=== PATIENT | female | born 1985 | race Caucasian/White ===

== ENCOUNTER 2017-07-12 12:16 | Observation (INO) ==
[2017-07-12] MEDS ORDERED: Ketorolac 15 MG/ML VIAL IVP ONE (12:45)
[2017-07-12] MEDS ORDERED: Ondansetron 4 MG/2 ML VIAL IVP ONE (12:45)
[2017-07-12 12:47] LABS: Bilirubin,Urine Negative (Negative); Blood,Urine Small (Negative); Clarity,Urine Cloudy (Clear); Color,Urine Dark Yellow (Yellow); Glucose,Urine (UA) Normal (Normal); Ketones,Urine Trace mg/dL (Negative); Leukocyte Esterase,Urine Moderate (Negative); Nitrite,Urine Positive (Negative); PH,Urine 6.5 pH Units (5.0-8.0); Protein,Urine 30 mg/dL (Neg-Trace); Specific Gravity,Urine 1.023 (1.010-1.025)
[2017-07-12 12:49] LABS: Bacteria,Urine Many per hpf (None-Few); RBC,Urine 0-3 per hpf (0-3); Squamous Epithelial Cell,Urine Many per lpf (None-Few)
--- NOTE | 2017-07-12 12:50 | Emergency Department Note ---
Disposition Clinical Impression: Pyelonephritis Disposition: Admitted As Inpatient Condition: Fair Referrals: NONE,PCP [Primary Care Provider] - Forms: Work/School Release, ED Satisfaction Letter General Adult HPI - General Chief complaint: ED Abdominal Pain Stated complaint: L flank pain Time Seen by Provider: 07/12/17 12:27 Source: patient Limitations: no limitations Nursing Notes Reviewed: Yes Vital Signs Reviewed: Yes - History of Present Illness HPI Narrative: Ms. Fajardo, a 32-year-old female, presents from home by POV for evaluation of left-sided flank pain. Onset 3 days ago. Described as constant ache. Nothing noted to improve or worsen her symptoms. She has associated fever and chills. She has no urinary symptoms. No other abdominal pains. PMH: Cervical cancer status post LEEP with no follow-up. History ovarian cysts. ROS: Positive: Left-sided flank pain, fever, chills Negative: Chest pain, palpitations, back pain, dyspnea, abdominal pain, dysuria , hematuria, melena, hematochezia, consultation, diarrhea, headache Pain Scale: 10 - Related Data Previous Rx's Medication Instructions Recorded DiphenhydraMINE [Benadryl] 25 mg PO Q8HR #9 capsule 02/19/17 Doxycycline 100 mg PO BID #20 capsule 02/19/17 Allergies Allergy/AdvReac Type Severity Reaction Status Date / Time No Known Allergies Allergy Verified 09/25/15 09:12 All systems ED: reviewed and negative except as stated. Past Medical History - Past Medical History Medical history: Reports: cancer, hepatitis Surgical history: Reports: hysterectomy, other Psychiatric history: Reports: depression - Social History Smoking Status: Current every day smoker Smokeless Tobacco Status: No Alcohol use: Reports: rarely Drug use: Reports: none Physical Exam Vital Signs Reviewed General: Patient is alert, oriented, and mild distress-she is sweating on her upper lip is shivering but is otherwise pleasant. HEENT: No facial asymmetry. Head is normocephalic and atraumatic. Oral mucosa moist. Trachea midline. Cardiovascular: Heart tachycardic rate and rhythm without clicks, rubs, gallops , or murmurs. No JVD. PMI nondisplaced. Respiratory: Symmetric chest rise with good respiratory effort. Bilateral breath sounds are clear without wheezing, crackles, or rhonchi. Abdomen: Bowel sounds present normoactive x-4 quadrants. Abdomen is soft, nondistended,. Tenderness along patient's left subcostal margin in the anterior axillary line to the middle back. Neuro: GCS 15. Psych: Patient's affect is appropriate for situation. - General Limitations: no limitations General appearance: alert, in no apparent distress Course Course Narrative: Patient presents from home for evaluation of left flank pain. She has no history of kidney stones. She does have a history of hepatitis B with jaundice. Initial clinical concern for nephrolithiasis versus pyelonephritis versus possible other infectious process. Abdominal exam is nonsurgical. I discussed with her the importance of follow-up for cervical cytology after her LEEP procedure some time ago. Patient is SIRS (+) with intake HR 91 and leukocytosis of 19.1. Lactate not elevated. Will IV rehydrate clinically, monitoring BP and lung sounds. Urinalysis clinically concerning for UTI which is consistent with the patient's presentation. CT abdomen and pelvis concerning for pyelonephritis. There is a consistent with patient's urinalysis and physical exam. Will begin 1 g Rocephin IV. This Reexamined the patient, she is no longer sweating or chilling; no rigors. After her first liter bolus, her systolic is 97. Will repeat bolus. Patient accepted by the hospitalist, Dr. Ware. * Of note, patient will need contact information or primary care physician as well as an [employer]. * Vital Signs Temperature 100.1 F H 07/12/17 12:19 Pulse Rate 91 07/12/17 12:19 Respiratory Rate 18 07/12/17 12:19 Blood Pressure 110/79 07/12/17 12:19 O2 Sat by Pulse Oximetry 100 07/12/17 12:19 Temperature 100.1 F H 07/12/17 12:19 Pulse Rate 61 07/12/17 13:54 Respiratory Rate 18 07/12/17 13:54 Blood Pressure 115/79 07/12/17 13:54 O2 Sat by Pulse Oximetry 97 07/12/17 13:54 Oxygen Delivery Oxygen Delivery Room Air Medical Decision Making - Lab Data Result diagrams: 07/12/17 13:12 07/12/17 13:12 Lab Results 07/12/17 07/12/17 07/12/17 Range/Units 12:35 12:36 13:12 WBC 19.1 H (4.3-11.1) K/mcL RBC 4.24 (3.82-4.97) M/mcL Hgb 13.3 (11.5-15.4) g/dL Hct 38.9 (35.3-44.9) % MCV 91.7 (83.0-100.0) fL MCH 31.4 (28.0-33.3) pg MCHC 34.2 (31.6-35.5) g/dL RDW 12.8 (11.5-14.5) % Plt Count 201 (140-400) K/mcL MPV 10.2 (9.4-12.4) fL Immature Gran % 0.9 (0-4) % Seg Neutrophils % 83.3 % Lymphocytes % 8.0 % Monocytes % 7.5 % Eosinophils % 0.1 % Basophils % 0.2 % Neutrophils # 15.9 H (1.6-8.9) K/mcL Lymphocytes # 1.5 (0.6-4.6) K/mcL Monocytes # 1.4 H (0.0-1.3) K/mcL Eosinophils # 0.0 (0.0-0.6) K/mcL Basophils # 0.0 (0.0-0.2) K/mcL Immature Plt Fraction 4.4 (1.1-6.1) % Sodium (136-145) mEq/L Potassium (3.5-4.5) mEq/L Chloride (98-109) mEq/L Carbon Dioxide (19-29) mEq/L BUN (7-20) mg/dL Creatinine (0.57-1.11) mg/dL Est GFR ( Amer) (> 60) Est GFR (Non-Af Amer) (> 60) BUN/Creatinine Ratio (6-26) Glucose (70-99) mg/dL Calculated Osmolality (280-300) Lactic Acid (0.5-2.2) mmol/L Calcium (8.6-10.8) mg/dL Total Bilirubin (0.2-1.2) mg/dL Direct Bilirubin (0.0-0.5) mg/dL Indirect Bilirubin (0.0-1.2) mg/dL AST (5-34) Units/L ALT (0-55) Units/L Alkaline Phosphatase (38-126) Units/L Serum Total Protein (6.0-8.3) g/dL Albumin (3.5-5.0) g/dL Globulin (2.4-3.5) g/dL Albumin/Globulin Ratio (1.1-2.2) Urine Color Dark Yellow (Yellow) Urine Clarity Cloudy A (Clear) Urine pH 6.5 (5.0-8.0) pH Units Ur Specific [place] 1.023 (1.010-1.025) Urine Protein 30 H (Neg-Trace) mg/dL Urine Glucose (UA) Normal (Normal) mg/dL Urine Ketones Trace H (Negative) mg/dL Urine Blood Small H (Negative) Urine Nitrite Positive A (Negative) Urine Bilirubin Negative (Negative) Urine Urobilinogen 2.0 H (Normal) mg/dL Ur Leukocyte Esterase Moderate H (Negative) Urine Microscopic RBC 0-3 (0-3) per hpf Urine Microscopic WBC 50-100 H (0-3) per hpf Ur Squamous Epith Cells Many H (None-Few) per lpf Amorphous Sediment Few (Few) Urine Bacteria Many H (None-Few) per hpf Urine Yeast Test Not Performed Ur Culture Indicated? YES A (NO) Urine Test Negative (Negative) 07/12/17 07/12/17 Range/Units 13:12 13:12 WBC (4.3-11.1) K/mcL RBC (3.82-4.97) M/mcL Hgb (11.5-15.4) g/dL Hct (35.3-44.9) % MCV (83.0-100.0) fL MCH (28.0-33.3) pg MCHC (31.6-35.5) g/dL RDW (11.5-14.5) % Plt Count (140-400) K/mcL MPV (9.4-12.4) fL Immature Gran % (0-4) % Seg Neutrophils % % Lymphocytes % % Monocytes % % Eosinophils % % Basophils % % Neutrophils # (1.6-8.9) K/mcL Lymphocytes # (0.6-4.6) K/mcL Monocytes # (0.0-1.3) K/mcL Eosinophils # (0.0-0.6) K/mcL Basophils # (0.0-0.2) K/mcL Immature Plt Fraction (1.1-6.1) % Sodium 135 L (136-145) mEq/L Potassium 3.7 (3.5-4.5) mEq/L Chloride 102 (98-109) mEq/L Carbon Dioxide 24 (19-29) mEq/L BUN 8 (7-20) mg/dL Creatinine 0.79 (0.57-1.11) mg/dL Est GFR ( Amer) > 60 (> 60) Est GFR (Non-Af Amer) > 60 (> 60) BUN/Creatinine Ratio 10 (6-26) Glucose 120 H (70-99) mg/dL Calculated Osmolality 280 (280-300) Lactic Acid 1.6 (0.5-2.2) mmol/L Calcium 8.9 (8.6-10.8) mg/dL Total Bilirubin 0.5 (0.2-1.2) mg/dL Direct Bilirubin 0.2 (0.0-0.5) mg/dL Indirect Bilirubin 0.3 (0.0-1.2) mg/dL AST 9 (5-34) Units/L ALT 7 (0-55) Units/L Alkaline Phosphatase 64 (38-126) Units/L Serum Total Protein 7.2 (6.0-8.3) g/dL Albumin 3.3 L (3.5-5.0) g/dL Globulin 3.9 H (2.4-3.5) g/dL Albumin/Globulin Ratio 0.8 L (1.1-2.2) Urine Color (Yellow) Urine Clarity (Clear) Urine pH (5.0-8.0) pH Units Ur Specific [place] (1.010-1.025) Urine Protein (Neg-Trace) mg/dL Urine Glucose (UA) (Normal) mg/dL Urine Ketones (Negative) mg/dL Urine Blood (Negative) Urine Nitrite (Negative) Urine Bilirubin (Negative) Urine Urobilinogen (Normal) mg/dL Ur Leukocyte Esterase (Negative) Urine Microscopic RBC (0-3) per hpf Urine Microscopic WBC (0-3) per hpf Ur Squamous Epith Cells (None-Few) per lpf Amorphous Sediment (Few) Urine Bacteria (None-Few) per hpf Urine Yeast Ur Culture Indicated? (NO) Urine Test (Negative)
[2017-07-12] MEDS ORDERED: 0.9 % Sodium Chloride 1,000 ML IVC ONE ×2 (12:55→14:17)
[2017-07-12 12:59] LABS: WBC,Urine 50-100 per hpf (0-3)
[2017-07-12 13:00] LABS: Amorphous Sediment,Urine Few (Few)
--- NOTE | 2017-07-12 13:16 | Emergency Department Note ---
START Narrative - START START: I examined this patient and my medical decision-making was reviewed with the Resident Physician. I agree with the documented findings, disposition and treatment plan as described except to the extent set forth below. 32-year-old female presents emergency room for left flank pain. We will evaluate for possible kidney stone versus pyelonephritis versus other intra- abdominal pathology. She does have a fever and evidence of a bad urinary tract infection with positive nitrites. Blood cultures. IV fluids she does meet some Sirs criteria.
[2017-07-12 13:21] LABS: Basophils % 0.2 %; Eosinophils % 0.1 %; Hematocrit 38.9 % (35.3-44.9); Hemoglobin 13.3 g/dL (11.5-15.4); Immature Granulocytes % 0.9 % (0-4); Immature Platelets 4.4 % (1.1-6.1); Lymphocytes # 1.5 K/mcL (0.6-4.6); Mean Corpuscular HGB Conc 34.2 g/dL (31.6-35.5); Mean Corpuscular Hemoglobin 31.4 pg (28.0-33.3); Mean Corpuscular Volume 91.7 fL (83.0-100.0); Mean Platelet Volume 10.2 fL (9.4-12.4); Monocytes # 1.4 K/mcL (0.0-1.3); Monocytes % 7.5 %; Neutrophils # 15.9 K/mcL (1.6-8.9); Platelet Count 201 K/mcL (140-400); Red Blood Count 4.24 M/mcL (3.82-4.97); Red Cell Distribution Width 12.8 % (11.5-14.5); Segmented Neutrophils % 83.3 %
[2017-07-12 13:35] LABS: Alanine Aminotransferase 7 Units/L (0-55); Albumin 3.3 g/dL (3.5-5.0); Albumin/Globulin Ratio 0.8 (1.1-2.2); Alkaline Phosphatase 64 Units/L (38-126); Aspartate Amino Transferase 9 Units/L (5-34); BUN/Creatinine Ratio 10 (6-26); Bilirubin,Direct 0.2 mg/dL (0.0-0.5); Bilirubin,Indirect 0.3 mg/dL (0.0-1.2); Bilirubin,Total 0.5 mg/dL (0.2-1.2); Blood Urea Nitrogen 8 mg/dL (7-20); Calcium 8.9 mg/dL (8.6-10.8); Carbon Dioxide 24 mEq/L (19-29); Chloride 102 mEq/L (98-109); Globulin 3.9 g/dL (2.4-3.5); Glucose 120 mg/dL (70-99); Osmolality,Calculated 280 (280-300); Potassium 3.7 mEq/L (3.5-4.5); Sodium 135 mEq/L (136-145); Total Protein 7.2 g/dL (6.0-8.3); eGFR For African Americans > 60 (> 60); eGFR For Non-African Americans > 60 (> 60)
[2017-07-12] MEDS ORDERED: Ondansetron 4 MG/2 ML VIAL IVP PRN (14:50)
[2017-07-12] MEDS ORDERED: Acetaminophen 325 MG TABLET PO PRN (14:50)
[2017-07-12] MEDS ORDERED: Naloxone 0.4 MG/ML INJ IVP PRN (14:50)
--- NOTE | 2017-07-12 15:00 | Internal Med History&Physical ---
Date of Encounter: 07/12/17 Time of Encounter: 14:54 Assessment and Plan (1) Sepsis Current visit: Yes Status: Acute Patient has UTI/pyelonephritis, WBC count of 19, tachycardia with HR in the 90s and fever with temperature of 100.1, meeting sepsis criteria. blood cultures and urine cultures sent Lactate normal at 1.6 Fluid boluses given in ED, will continue with 0.9NS at 100mL/hr Antibiotics initiated with IVPB Rocephin. Qualifiers: Sepsis type: sepsis due to unspecified organism Qualified Code(s): A41.9 - Sepsis, unspecified organism (2) Pyelonephritis Current visit: Yes Status: Acute Patient presented with left flank pain, fever, chills. UA was positive for UTI. CT abd/pelvis showed mild left perinephric and periureteral edema consistent with pyelonephritis. IV fluids 0.9NS at 100mL/hr IV rocephin daily tylenol and toradol PRN for pain and fever. Zofran PRN for nausea. (3) Tobacco abuse Current visit: Yes Status: Acute Patient reports she smokes 1PPD. Encouraged smoking cessation. Nicotine patch and smoking cessation education ordered. (4) DVT prophylaxis Current visit: Yes Status: Acute anti-embolic stockings lovenox SQ daily Internal Medicine - H&P: HPI Chief complaint: fever, chills, flank pain Admitted From: Emergency Dept Plans for Post Hospital Care: Home History of present illness: Ms. Fajardo is a 32 year old female history of hepatitis B, cervical cancer status post LEEP procedure presented to the emergency department for fever, chills and left flank pain for the last 3 days. Patient reports she first noted an ache in her left flank 3 days ago, and it progressively worsened and yesterday developed fever, chills, sweats, and nausea. The pain is worse with certain movements and with palpation. She denies dysuria, vomiting, diarrhea, chest pain, palpitations or shortness of breath. Evaluation in the ED included a CT of her abdomen and pelvis which showed mild left perinephric and periureteral edema. UA was positive for infection. WBC count was elevated to 19.1, she had a fever of 100.1 and she was mildly tachycardic with HR in the low 90s. Lactate was normal at 1.6. Blood cultures and urine cultures were sent, she was given fluid boluses and started on Rocephin. On exam, patient alert and oriented, in no acute distress. Heart had regular rate and rhythm, lungs clear bilaterally to auscultation. Abdomen soft, nontender with positive bowel sounds. Significant left CVA tenderness on palpation. Past Med Surg Social Fam HX - Past Medical History Medical history: cancer (cervical s/p LEEP), hepatitis Psychiatric history: depression - Past Surgical History Surgical History: other (LEEP) - Social History Smoking Status: Current every day smoker Packs per day: 1 Smokeless Tobacco Status: No Alcohol use: rarely Drug use: none (history of IVDU) - Family History Mother Hx Family Cardiac Disorders: Yes Hx Family Cancer: Yes Father Hx Family Cardiac Disorders: Yes Hx Family Cancer: Yes Internal Medicine - H&P: Meds No Known Home Drugs 07/12/17 [History] 3 Allergy/AdvReac Type Severity Reaction Status Date / Time No Known Allergies Allergy Verified 09/25/15 09:12 All Systems PM: A 10-system review of systems was performed and is negative for pertinent findings except as documented above in the HPI. - Constitutional Constitutional: chills, fever(s), night sweats - EENT Eyes: no change in vision, no discharge, no pain, no photophobia Ears: no ear discharge, no ear pain, no tinnitus Nose, mouth and throat: no dysphagia, no nasal discharge, no neck pain, no sore throat - Cardiovascular Cardiovascular ROS IM: no chest pain, no diaphoresis, no dyspnea, no lightheadedness, no palpitations, no syncope - Respiratory Respiratory: no cough, no dyspnea, no wheezing, no excessive phlegm production - Gastrointestinal Gastrointestinal: nausea, no abdominal pain, no diarrhea, no hematemesis, no hematochezia, no melena, no vomiting - Genitourinary Genitourinary: flank pain (left), no change in urinary stream, no dysuria, no hematuria - Musculoskeletal Musculoskeletal ROS IM: back pain (left flank), no numbness, no tingling - Integumentary Integumentary IM: no rash, no unusual bruising - Neurological Neurological ROS: no confusion, no convulsions, no focal weakness, no numbness, no tingling, no tremor(s) - Hematologic/Lymphatic Hematologic/Lymphatic: no easy bruising - Constitutional Vitals: Temp Pulse Resp BP Pulse Ox 100.1 F H 58 16 104/74 98 07/12/17 12:19 07/12/17 14:45 07/12/17 14:45 07/12/17 14:45 07/12/17 14:45 General appearance: Present: A&O X 3, pleasant, no acute distress - Head Head exam: Present: atraumatic, normocephalic - Eye Eye exam: Present: PERRL, conjuntiva pink, sclera anicteric Pupils: Present: PERRL - Neck Neck exam general surgery: Present: supple, trachea midline. Absent: lymphadenopathy - Respiratory Respiratory exam: Present: CTAB. Absent: accessory muscle use, rales, rhonchi, wheezes - Cardiovascular Cardiovascular exam: Present: RRR, +S1, +S2. Absent: diastolic murmur, gallop, rubs, systolic murmur - GI/Abdominal GI/Abdominal exam: Present: normal bowel sounds, soft, no peritoneal signs. Absent: distended, tenderness - Extremities Exam Extremities exam: Present: warm, radial pulses palpable and symmetrical. Absent : calf tenderness, cyanotic, pedal edema - Back Exam Back exam: Present: CVA tenderness (L) - Neurological Exam Neurological exam: Present: CN II-XII intact, oriented X3, no focal deficits. Absent: pronater drift, facial droop, speech deficit - Skin Skin exam: Present: dry, intact Internal Med - H&P Results - Labs CBC & Chem 7: 07/12/17 13:12 07/12/17 13:12 Labs: Short CBC 07/12/17 Range/Units 13:12 WBC 19.1 H (4.3-11.1) K/mcL Hgb 13.3 (11.5-15.4) g/dL Hct 38.9 (35.3-44.9) % Plt Count 201 (140-400) K/mcL Neutrophils # 15.9 H (1.6-8.9) K/mcL BMP 07/12/17 13:12 Sodium 135 L Potassium 3.7 Chloride 102 Carbon Dioxide 24 BUN 8 Creatinine 0.79 Glucose 120 H Calcium 8.9 Liver Function 07/12/17 Range/Units 13:12 Total Bilirubin 0.5 (0.2-1.2) mg/dL Direct Bilirubin 0.2 (0.0-0.5) mg/dL AST 9 (5-34) Units/L ALT 7 (0-55) Units/L Alkaline Phosphatase 64 (38-126) Units/L Albumin 3.3 L (3.5-5.0) g/dL Urine 07/12/17 Range/Units 12:35 Urine Color Dark Yellow (Yellow) Urine Clarity Cloudy A (Clear) Urine pH 6.5 (5.0-8.0) pH Units Ur Specific [place] 1.023 (1.010-1.025) Urine Protein 30 H (Neg-Trace) mg/dL Urine Glucose (UA) Normal (Normal) mg/dL - Impressions ITS Impressions Abdomen/Pelvis CT 07/12/17 12:43 IMPRESSION: 1. Mild left perinephric and periureteral edema either due to pyelonephritis or recently passed nephrolithiasis ; correlate with urinalysis. D/ / Rocky Goode MD / Rocky Goode MD Interpreting Provider: Rocky Goode MD - Diagnostic Studies CT scan - abdomen Additional comments: Abdomen/Pelvis CT 07/12/17 12:43
[2017-07-12] MEDS: Nicotine 21 MG PATCH.TD24 TD SCH (16:41)
[2017-07-12] MEDS: 0.9 % Sodium Chloride 1,000 ML IVC SCH (16:41)
[2017-07-12] MEDS: Ketorolac 30 MG/ML VIAL IVP PRN (19:36)
[2017-07-13] MEDS: Ketorolac 30 MG/ML VIAL IVP PRN ×2 (02:18→08:38)
[2017-07-13] MEDS: 0.9 % Sodium Chloride 1,000 ML IVC SCH ×2 (02:18→13:42)
[2017-07-13 04:58] LABS: Basophils % 0.1 %; Eosinophils % 0.2 %; Hematocrit 34.3 % (35.3-44.9); Immature Granulocytes % 0.7 % (0-4); Lymphocytes # 1.7 K/mcL (0.6-4.6); Lymphocytes % 12.1 %; Mean Corpuscular HGB Conc 32.7 g/dL (31.6-35.5); Mean Corpuscular Hemoglobin 30.4 pg (28.0-33.3); Mean Corpuscular Volume 93.2 fL (83.0-100.0); Mean Platelet Volume 10.5 fL (9.4-12.4); Monocytes # 1.4 K/mcL (0.0-1.3); Monocytes % 9.6 %; Platelet Count 148 K/mcL (140-400); Red Blood Count 3.68 M/mcL (3.82-4.97); Red Cell Distribution Width 12.7 % (11.5-14.5); Segmented Neutrophils % 77.3 %
[2017-07-13 04:59] LABS: Hemoglobin 11.2 g/dL (11.5-15.4)
[2017-07-13 05:15] LABS: BUN/Creatinine Ratio 10 (6-26); Blood Urea Nitrogen 7 mg/dL (7-20); Calcium 8.2 mg/dL (8.6-10.8); Carbon Dioxide 23 mEq/L (19-29); Chloride 110 mEq/L (98-109); Glucose 113 mg/dL (70-99); Osmolality,Calculated 285 (280-300); Potassium 4.3 mEq/L (3.5-4.5); Sodium 138 mEq/L (136-145); eGFR For African Americans > 60 (> 60); eGFR For Non-African Americans > 60 (> 60)
[2017-07-13] MEDS ORDERED: *HR* Enoxaparin 40 MG/0.4 ML SYRINGE SQ SCH (06:00)
[2017-07-13] MEDS: Nicotine 21 MG PATCH.TD24 TD SCH (08:13)
[2017-07-13] MEDS ORDERED: *HR* Morphine 2 MG/ML SYRINGE IVP PRN (14:10)
[2017-07-13] MEDS ORDERED: *HR* OxyCODONE/APAP 5/325 TABLET PO PRN (14:10)
[2017-07-13 14:28] VITALS: BP 143/66
--- NOTE | 2017-07-13 15:00 | Discharge Summary ---
Date of Encounter: 07/13/17 Time of Encounter: 14:56 - Discharge Diagnosis (1) Sepsis Priority: Primary Status: Resolved Qualifiers: Sepsis type: sepsis due to unspecified organism Qualified Code(s): A41.9 - Sepsis, unspecified organism (2) UTI (urinary tract infection) Priority: Primary Status: Acute Qualifiers: Qualified Code(s): N39.0 - Urinary tract infection, site not specified (3) Pyelonephritis Priority: Primary Status: Acute (4) Tobacco abuse Priority: Secondary Status: Acute - Discharge Medications Prescriptions: OxyCODONE/APAP 5/325 [Percocet 5/325 MG] 1 each PO Q6HR PRN #15 tab PRN Reason: Moderate Pain Ciprofloxacin HCl [Cipro] 500 mg PO BID #10 tablet Nicotine Patch [Nicoderm] 21 mg TD DAILY #30 Home Medications: Ciprofloxacin HCl [Cipro] 500 mg PO BID #10 tablet 07/13/17 [Rx] Nicotine Patch [Nicoderm] 21 mg TD DAILY #30 07/13/17 [Rx] OxyCODONE/APAP 5/325 [Percocet 5/325 MG] 1 each PO Q6HR PRN #15 tab 07/13/17 [Rx ] Allergies/Adverse Reactions: 3 Allergy/AdvReac Type Severity Reaction Status Date / Time No Known Allergies Allergy Verified 09/25/15 09:12 Date of admission: 07/12/17 14:57 Primary care physician: PCP NONE - Patient Status Disposition: Home, Self-Care Condition: Good Overall status at discharge: patient is back to baseline - Discharge Instructions Follow Up With: NONE,PCP [Primary Care Provider] - Additional Instructions: Keep hydrate well. Drink plenty of water Continue PO abx for 5 more days Quit smoking f/u with PCP in one week - Diet and Activity Activity: increase activity as tolerated Hospital course: Ms. Fajardo is a 32 year old female history of hepatitis B, cervical cancer status post LEEP procedure presented to the emergency department for fever, chills and left flank pain for the last 3 days. Patient reports she first noted an ache in her left flank 3 days ago, and it progressively worsened and yesterday developed fever, chills, sweats, and nausea. The pain is worse with certain movements and with palpation. She denies dysuria, vomiting, diarrhea, chest pain, palpitations or shortness of breath. Evaluation in the ED included a CT of her abdomen and pelvis which showed mild left perinephric and periureteral edema. UA was positive for infection. WBC count was elevated to 19.1, she had a fever of 100.1 and she was mildly tachycardia with HR in the low 90s. Lactate was normal at 1.6. Pt was admitted in the hospital and started her on empirical abx with Rocephin. She was also placed on aggressive IV hydration. Her symptoms started improving. She remained afebrile and her HR also well controlled on 70's and her left flank pain resolved. She is tolerating PO intake well, would like to go home today. Her Urine cx growing E. Coli so will send her home on Ciprofloxain 500mg BID for 5 more days. Will d/c her home in stale condition today. - Time Spent with Patient Total time spent providing and/or coordinating discharge services: - Constitutional Vitals: Temp Pulse Resp BP Pulse Ox 98.1 F 56 14 143/66 98 07/13/17 14:27 07/13/17 14:27 07/13/17 14:27 07/13/17 14:27 07/13/17 14:27 General appearance: Present: A&O X 3, pleasant, no acute distress - Head Head exam: Present: atraumatic, normal inspection - Respiratory Respiratory exam: Present: CTAB. Absent: respiratory distress, rhonchi, wheezes - Cardiovascular Cardiovascular exam: Present: RRR, +S1, +S2. Absent: diastolic murmur, gallop, rubs, systolic murmur - GI/Abdominal GI/Abdominal exam: Present: normal bowel sounds, soft, no peritoneal signs. Absent: distended, tenderness - Extremities Exam Extremities exam: Absent: calf tenderness, pedal edema, tenderness - Back Exam Back exam: Absent: CVA tenderness (L), CVA tenderness (R) - Psychiatric Psychiatric exam: Present: normal affect, normal mood
== END 2017-07-13 15:42 | disposition home or self-care (01) ==
LOC: 3ANU 12:16 → EMEROO 12:16 → 3ANU 15:03
PROVIDERS: ADMIT Internal Medicine; ATTEND Family Medicine